=== PATIENT | male | born 1940 | race Caucasian/White ===

== ENCOUNTER → 2016-07-27 | Outpatient (CLI) | payer MEDICARE, OTHER | LOC: SP 10:43 | PROVIDERS: ATTEND Specialist | DX: I65.29 Occlusion and stenosis of unspecified carotid artery (principal) | CPT/HCPCS: 93880 ==

== ENCOUNTER 2019-05-25 17:28 | Emergency (ER) | payer MEDICARE, OTHER ==
--- NOTE | 2019-05-25 18:15 | ER Document Report ---
ED Medical Screen (RME) - General Stated Complaint: CHEST PAIN Time Seen by Provider: 05/25/19 18:05 Primary Care Provider: RAGHAVENDRA PALMA MD [Primary Care Provider] - Follow up as needed TRAVEL OUTSIDE OF THE [place] IN LAST 30 DAYS: No - HPI Notes: 05/25/19 18:12 Patient is an 79-year-old male with a history of coronary artery disease with 3 previous stents, hypertension, type 2 diabetes who presents complaining of a headache for 2 days with a dropping pulsation sound in his ears as well as intermittent chest pain and shortness of breath for the past couple days as well. No fever or recent illness. This is not the worst headache of his life and did not start as a thunderclap. He is able to eat and drink without difficulty. He is urinating normally. He was seen at [facility] yesterday and was diagnosed with vertigo. I did review briefly with Dr. Stoddard and we will get a CT head as well as cardiac work up. I have treated and performed a rapid initial assessment of this patient. A comprehensive ED assessment and evaluation of the patient, analysis of test results and completion of medical decision making process will be conducted by additional ED providers. PHYSICAL EXAMINATION: GENERAL: Well-appearing, well-nourished and in no acute distress. A&Ox4. Answers questions appropriately. Neuro: Cranial nerves grossly intact. GCS 15. Heart: RRR Lungs: CTAB - Related Data Allergies/Adverse Reactions: atorvastatin calcium [From Lipitor] Adverse Reaction (Severe, Verified 05/25/19 18:04) Rhabdomyolosis Past Medical History - Past Medical History Cardiac Medical History: Reports: Hx Coronary Artery Disease, Hx Heart Attack, Hx Hypercholesterolemia, Hx Hypertension Denies: Hx Atrial Fibrillation, Hx Congestive Heart Failure, Hx Peripheral Vascular Disease, Hx Heart Murmur Pulmonary Medical History: Denies: Hx Tuberculosis Endocrine Medical History: Reports: Hx Diabetes Mellitus Type 2. Denies: Hx Graves' Disease, Hx Hyperthyroidism, Hx Hypothyroidism GI Medical History: Reports: Hx Gastroesophageal Reflux Disease, Hx Hiatal Hernia, Hx Ulcer. Denies: Hx Crohn's Disease, Hx Irritable Bowel, Hx Liver Failure, Hx Pancreatitis Musculoskeltal Medical History: Reports Hx Arthritis - knee & shoulder, Denies Hx Fibromyalgia, Denies Hx Muscular Dystrophy, Denies Hx Systemic Lupus Erythematosus Psychiatric Medical History: Reports: Hx Depression Denies: Hx Bipolar Disorder, Hx Post Traumatic Stress Disorder, Hx Schizophrenia Traumatic Medical History: Denies: Hx Fractures Past Surgical History: Reports: Hx Appendectomy, Hx Bowel Surgery, Hx Cardiac Surgery - stents x3, Hx Colostomy - diverticulitis some bowel removed, Hx Tonsillectomy. Denies: Hx Cholecystectomy, Hx Coronary Artery Bypass Graft, Hx Gastric Bypass Surgery, Hx Herniorrhaphy, Hx Pacemaker - Immunizations Hx Diphtheria, Pertussis, Tetanus Vaccination: Yes - 5y Physical Exam - Vital signs Vitals: Temp Pulse Resp BP Pulse Ox 98 F 70 18 159/78 H 99 05/25/19 17:38 05/25/19 17:38 05/25/19 17:38 05/25/19 17:38 05/25/19 17:38 Course - Vital Signs Vital signs: Temp Pulse Resp BP Pulse Ox 98 F 70 18 159/78 H 99 05/25/19 17:38 05/25/19 17:38 05/25/19 17:38 05/25/19 17:38 05/25/19 17:38 Doctor's Discharge - Discharge Referrals: RAGHAVENDRA PALMA MD [Primary Care Provider] - Follow up as needed
--- NOTE | 2019-05-25 19:20 | RADIOLOGY REPORT (SQ) ---
EXAM DESCRIPTION: CHEST 2 VIEWS COMPLETED DATE/TIME: 05/25/2019 7:05 pm REASON FOR STUDY: CP COMPARISON: Chest radiographs 04/08/13. EXAM PARAMETERS: NUMBER OF VIEWS: two views TECHNIQUE: Digital Frontal and Lateral radiographic views of the chest acquired. RADIATION DOSE: NA LIMITATIONS: none FINDINGS: LUNGS AND PLEURA: No opacities, masses or pneumothorax. No pleural effusion. MEDIASTINUM AND HILAR STRUCTURES: Unchanged contours. HEART AND VASCULAR STRUCTURES: Heart normal size. No evidence for failure. BONES: No acute findings. HARDWARE: None in the chest. OTHER: No other significant finding. IMPRESSION: NO ACUTE RADIOGRAPHIC FINDING IN THE CHEST. TECHNICAL DOCUMENTATION: JOB ID: [id number] [employer]- All Rights Reserved Reading location - IP/workstation name: [email or web address]
--- NOTE | 2019-05-25 19:21 | RADIOLOGY REPORT (SQ) ---
EXAM DESCRIPTION: CT HEAD WITHOUT COMPLETED DATE/TIME: 05/25/2019 7:05 pm REASON FOR STUDY: Headache COMPARISON: None. TECHNIQUE: Axial images acquired through the brain without intravenous contrast. Images reviewed wi th bone, brain and subdural windows. Additional sagittal and coronal reconstructions were generated. Images stored on PACS. All CT scanners at this facility use dose modulation, iterative reconstruction, and/or weight based d osing when appropriate to reduce radiation dose to as low as reasonably achievable (ALARA). [facility]: Dose Right [facility]: CareDose [facility]: Dose Right [facility]: Teradose 4D [facility]: [employer] RADIATION DOSE: CT Rad equipment meets quality standard of care and radiation dose reduction techniq ues were employed. CTDIvol: 53.2 mGy. DLP: 964 mGy-cm. mGy. LIMITATIONS: None. FINDINGS: VENTRICLES: Normal size and contour. CEREBRUM: No masses. No hemorrhage. No midline shift. No evidence for acute infarction. Few scatte red areas of low density in the white matter most likely chronic small vessel ischemic changes. CEREBELLUM: No masses. No hemorrhage. No alteration of density. No evidence for acute infarction. EXTRAAXIAL SPACES: No fluid collections. No masses. ORBITS AND GLOBE: No intra- or extraconal masses. Normal contour of globe without masses. CALVARIUM: No fracture. PARANASAL SINUSES: No fluid or mucosal thickening. SOFT TISSUES: No mass or hematoma. OTHER: No other significant finding. IMPRESSION: No acute intracranial pathology. No noncontrast CT findings to explain headache. Small vessel white matter disease. EVIDENCE OF ACUTE STROKE: NO. COMMENT: Quality ID # 436: Final reports with documentation of one or more dose reduction techniques (e.g., Automated exposure control, adjustment of the mA and/or kV according to patient size, use of iterative reconstruction technique) TECHNICAL DOCUMENTATION: JOB ID: [id number] [employer]- All Rights Reserved Reading location - IP/workstation name: [email or web address]
[2019-05-25 19:26] LABS: APPEARANCE,URINE CLEAR; BILIRUBIN,URINE NEGATIVE (NEGATIVE); COLOR,URINE STRAW; GLUCOSE, URINE NEGATIVE (NEGATIVE); KETONES,URINE NEGATIVE (NEGATIVE); PROTEIN,URINE 30 mg/dL (NEGATIVE); URINE SPECIFIC GRAVITY 1.004; UROBILINOGEN,URINE NEGATIVE mg/dL (<2.0)
[2019-05-25 19:44] LABS: ABSOLUTE EOSINOPHILS # (AUTO) 0.2 10^3/uL (0.0-0.6); ABSOLUTE LYMPHOCYTES (AUTO) 1.9 10^3/uL (0.5-4.7); ABSOLUTE MONOCYTES (AUTO) 0.5 10^3/uL (0.1-1.4); ABSOLUTE NEUT (AUTO) 1.8 10^3/uL (1.7-8.2); BASOPHILS % (AUTO) 0.9 % (0-2); HEMATOCRIT 38.5 % (37.9-51.0); HEMOGLOBIN 13.2 g/dL (13.5-17.0); LYMPHOCYTES % (AUTO) 42.3 % (13-45); MEAN CORPUSCULAR HEMOGLOBIN 32.4 pg (27.0-33.4); MEAN CORPUSCULAR HGB CONC 34.3 g/dL (32.0-36.0); MEAN CORPUSCULAR VOLUME 95 fl (80-97); PLATELET COUNT 307 10^3/uL (150-450); RED BLOOD COUNT 4.07 10^6/uL (4.35-5.55); RED CELL DISTRIBUTION WIDTH 14.1 % (11.5-14.0); SEGMENTED NEUTROPHILS % (AUTO) 39.8 % (42-78); TOTAL CELLS COUNTED % (AUTO) 100 %; WHITE BLOOD COUNT 4.5 10^3/uL (4.0-10.5)
[2019-05-25 20:08] LABS: ALBUMIN 4.2 g/dL (3.5-5.0); ALKALINE PHOSPHATASE 79 U/L (38-126); ANION GAP 9 (5-19); ASPARTATE AMINO TRANSFERASE 35 U/L (17-59); BILIRUBIN,DIRECT 0.3 mg/dL (0.0-0.4); BILIRUBIN,TOTAL 0.6 mg/dL (0.2-1.3); BLOOD UREA NITROGEN 14 mg/dL (7-20); CALCIUM 10.8 mg/dL (8.4-10.2); CARBON DIOXIDE 25 mmol/L (22-30); CHLORIDE 105 mmol/L (98-107); GLUCOSE 102 mg/dL (75-110); POTASSIUM 4.6 mmol/L (3.6-5.0); TOTAL PROTEIN 7.7 g/dL (6.3-8.2)
[2019-05-25] MEDS ORDERED: NORMAL SALINE 500 ML IV ONE (20:43)
--- NOTE | 2019-05-25 20:49 | ER Document Report ---
ED Headache - General Chief Complaint: Headache >24 hrs old Stated Complaint: CHEST PAIN Time Seen by Provider: 05/25/19 18:05 Primary Care Provider: RAGHAVENDRA PALMA MD [ACTIVE STAFF] - Follow up as needed Mode of Arrival: Medic Information source: Patient TRAVEL OUTSIDE OF THE [place] IN LAST 30 DAYS: No - HPI Patient complains to provider of: Headache Patient reports: Other - Patient reports a chronic throbbing headache that has been present for months. And was seen yesterday in the [facility] had a CT scan of his head done that was reported to him as normal. He was placed on meclizine for lightheaded dizziness. Today patient says the headache is still present so he came to the ED for further evaluation. Patient denies any chest pain issues. Patient does have coronary artery disease and stents in his heart but has no complaints of chest pain discomfort at this time. Onset: Other - Chronic Onset was: Gradual, Other - Bitemporal and throbbing in nature also can hear this noise in both ears. States headache pain comes and goes 1 is in his greatest intensity about 6 out of 10 otherwise less than 3 out of 10. Severity: Moderate Pain Level: 2 Context: Other - No diagnosis of this headache to date Preceding symptoms: Other - The only symptoms is a throbbing nature to the headache on both temporal areas. Associated symptoms: Lightheaded, Motion sickness Similar symptoms previously: Yes Recently seen / treated by doctor: Yes - Was evaluated in the [facility] ED yesterday including a CT scan is - Related Data Allergies/Adverse Reactions: atorvastatin calcium [From Lipitor] Adverse Reaction (Severe, Verified 05/25/19 18:04) Rhabdomyolosis Home Medications: gabapentin 300. asa 81. norvasc 5. lisinopril 40. cinnamon 500. zantac 150. celexa 20. ferrous sulfate 325. crestor 20. aricept 10. seroquen 25. isosorbide 30. vitamin d3-b12-c 500 Past Medical History - Social History Smoking Status: Current Every Day Smoker Chew tobacco use (# tins/day): No Frequency of alcohol use: None Drug Abuse: None Lives with: Family Family History: Reviewed & Not Pertinent Patient has suicidal ideation: No Patient has homicidal ideation: No - Past Medical History Cardiac Medical History: Reports: Hx Coronary Artery Disease, Hx Heart Attack, Hx Hypercholesterolemia, Hx Hypertension Denies: Hx Atrial Fibrillation, Hx Congestive Heart Failure, Hx Peripheral Vascular Disease, Hx Heart Murmur Pulmonary Medical History: Denies: Hx Tuberculosis Endocrine Medical History: Reports: Hx Diabetes Mellitus Type 2. Denies: Hx Graves' Disease, Hx Hyperthyroidism, Hx Hypothyroidism GI Medical History: Reports: Hx Gastroesophageal Reflux Disease, Hx Hiatal Hernia, Hx Ulcer. Denies: Hx Crohn's Disease, Hx Irritable Bowel, Hx Liver Failure, Hx Pancreatitis Musculoskeletal Medical History: Reports Hx Arthritis - knee & shoulder, Denies Hx Fibromyalgia, Denies Hx Muscular Dystrophy, Denies Hx Systemic Lupus Erythematosus Psychiatric Medical History: Reports: Hx Depression Denies: Hx Bipolar Disorder, Hx Post Traumatic Stress Disorder, Hx Schizophrenia Traumatic Medical History: Denies: Hx Fractures Past Surgical History: Reports: Hx Appendectomy, Hx Bowel Surgery, Hx Cardiac Surgery - stents x3, Hx Colostomy - diverticulitis some bowel removed, Hx Tonsillectomy. Denies: Hx Cholecystectomy, Hx Coronary Artery Bypass Graft, Hx Gastric Bypass Surgery, Hx Herniorrhaphy, Hx Pacemaker - Immunizations Hx Diphtheria, Pertussis, Tetanus Vaccination: Yes - 5y Hx Pneumococcal Vaccination: 05/29/10 Review of Systems - Review of Systems Neurological/Psychological: See HPI Physical Exam - Vital signs Vitals: Temp Pulse Resp BP Pulse Ox 98 F 70 18 159/78 H 99 05/25/19 17:38 05/25/19 17:38 05/25/19 17:38 05/25/19 17:38 05/25/19 17:38 Interpretation: Normal - General General appearance: Appears well, Alert - HEENT Head: Normocephalic, Atraumatic Eyes: Normal Extraocular movements intact: Yes Pupils: PERRL Visual law normal: Yes Tympanic membrane: Bulging, Serous effusion Hearing loss: Left, Right Sinus: Normal Nasal: Normal Mouth/Lips: Normal Mucous membranes: Moist Pharynx: Normal - Respiratory Respiratory status: No respiratory distress Chest status: Nontender Breath sounds: Normal Chest palpation: Normal - Cardiovascular Rhythm: Regular Heart sounds: Normal auscultation Murmur: No - Abdominal Inspection: Normal Distension: No distension Bowel sounds: Normal Tenderness: Nontender Organomegaly: No organomegaly - Back Back: Normal, Nontender - Extremities General upper extremity: Normal inspection, Nontender, Normal color, Normal ROM, Normal temperature General lower extremity: Normal inspection, Nontender, Normal color, Normal ROM, Normal temperature, Normal weight bearing. No: Lina's sign - Neurological Neuro grossly intact: Yes Cognition: Normal Orientation: AAOx4 Ismael Coma Scale Eye Opening: Spontaneous [place] Coma Scale Verbal: Oriented [place] Coma Scale Motor: Obeys Commands [place] Coma Scale Total: 15 Speech: Normal Motor strength normal: LUE, RUE, LLE, RLE Sensory: Normal - Psychological Associated symptoms: Normal affect, Normal mood - Skin Skin Temperature: Warm Skin Moisture: Dry Skin Color: Normal Course - Re-evaluation Re-evalutation: 05/25/19 23:56 Also I recommended patient take Tylenol if needed for any headache pain. - Vital Signs Vital signs: Temp Pulse Resp BP Pulse Ox 98 F 70 18 154/89 H 100 05/25/19 17:38 05/25/19 17:38 05/25/19 17:38 05/25/19 22:02 05/25/19 22:02 - Laboratory Result Diagrams: 05/25/19 19:35 05/25/19 19:35 Laboratory results interpreted by me: 05/25/19 05/25/19 05/25/19 17:50 19:35 19:35 RBC 4.07 L Hgb 13.2 L RDW 14.1 H Seg Neutrophils % 39.8 L Creatinine 1.81 H Est GFR ( Amer) 44 L Est GFR (MDRD) Non-Af 36 L Calcium 10.8 H Urine Protein 30 H Urine Ascorbic Acid 20 H - Diagnostic Test Radiology reviewed: Image reviewed, Reports reviewed Discharge - Discharge Clinical Impression: Headache Condition: Stable Disposition: HOME, SELF-CARE Additional Instructions: Headache The physician does not feel that the headache you are experiencing has a serious underlying cause. Most headaches are due to emotional stress, with resultant muscle tension (tension headache). Occasionally, headaches are secondary to changes in the blood vessels of the scalp (vascular headache and migraine headache). Sometimes, a headache is the first symptom of another developing illness, such as a viral infection. You have no evidence of stroke, bleeding, meningitis, or other serious cause of your headache. The treatment of headaches varies with the severity and cause of the pain. Not all headaches need pain shots. In fact, there is evidence that using narcotics for headaches may make them worse in the long run. The physician will determine the therapy that's in your best interest. If you develop a fever, if the headache is different from any you've previously experienced, or if the headache progressively worsens, then call your physician at once or go to the emergency room. No new prescriptions. Patient is told to begin Tylenol if needed for headache. Patient is to continue all his other you usual medicines. Referrals: RAGHAVENDRA PALMA MD [ACTIVE STAFF] - Follow up as needed
--- NOTE | 2019-05-25 22:54 | EKG REPORT ---
SEVERITY:- NORMAL ECG - SINUS RHYTHM : Confirmed by: Ruth Melvin MD 25-May-2019 22:53:57
--- NOTE | 2019-05-25 23:25 | RADIOLOGY REPORT (SQ) ---
EXAM DESCRIPTION: CT NECK ANGIOGRAPHY WITHOUT THEN WITH IV CONTRAST, CT HEAD ANGIOGRAPHY WITHOUT THEN WITH IV CONTRAST COMPLETED DATE/TME: 05/25/2019 21:51 (accession [id number]), 05/25/2019 21:49 (accession [id number]) CLINICAL HISTORY: 79 years, Male, headache /bitemporal throbbing pain COMPARISON: None. TECHNIQUE: 442 Images stored on PACS. All CT scanners at this facility use dose modulation, iterative reconstruction, and/or weight based dosing when appropriate to reduce radiation dose to as low as reasonably achievable (ALARA). Axial CTA images with coronal and sagittal MIPS [facility]: Dose Right [facility]: CareDose [facility]: Dose Right [facility]: Teradose 4D [facility]: [employer] LIMITATIONS: None. FINDINGS: CTA neck: Origins of the great vessels are patent from the arch of the aorta. Moderate atheromatous change of the arch of the aorta. The origins and remaining cervical portions of the vertebral arteries are widely patent and codominant. Mild to moderate atheromatous calcification of the common carotid arteries bilaterally. However, the origins and remaining cervical portions of the internal carotid arteries are widely patent bilaterally. Minimal atheromatous calcification at the carotid bifurcations. CTA brain: The vertebral basilar system is unremarkable. Negative for basilar tip aneurysm. The petrous portions of the internal carotid arteries are widely patent. Mild atheromatous calcifications of the cavernous and supraclinoid ICAs bilaterally. No CTA evidence for severe stenosis, vascular encasement, or displacement IMPRESSION: No CTA evidence for measurable stenosis in the head or neck. TECHNICAL DOCUMENTATION: Quality ID # 436: Final reports with documentation of one or more dose reduction techniques (e.g., Automated exposure control, adjustment of the mA and/or kV according to patient size, use of iterative reconstruction technique) copyright 2010 [employer]- All Rights Reserved
--- NOTE | 2019-05-25 23:25 | RADIOLOGY REPORT (SQ) ---
EXAM DESCRIPTION: CT NECK ANGIOGRAPHY WITHOUT THEN WITH IV CONTRAST, CT HEAD ANGIOGRAPHY WITHOUT THEN WITH IV CONTRAST COMPLETED DATE/TME: 05/25/2019 21:51 (accession [id number]), 05/25/2019 21:49 (accession [id number]) CLINICAL HISTORY: 79 years, Male, headache /bitemporal throbbing pain COMPARISON: None. TECHNIQUE: 442 Images stored on PACS. All CT scanners at this facility use dose modulation, iterative reconstruction, and/or weight based dosing when appropriate to reduce radiation dose to as low as reasonably achievable (ALARA). Axial CTA images with coronal and sagittal MIPS [facility]: Dose Right [facility]: CareDose [facility]: Dose Right [facility]: Teradose 4D [facility]: [employer] LIMITATIONS: None. FINDINGS: CTA neck: Origins of the great vessels are patent from the arch of the aorta. Moderate atheromatous change of the arch of the aorta. The origins and remaining cervical portions of the vertebral arteries are widely patent and codominant. Mild to moderate atheromatous calcification of the common carotid arteries bilaterally. However, the origins and remaining cervical portions of the internal carotid arteries are widely patent bilaterally. Minimal atheromatous calcification at the carotid bifurcations. CTA brain: The vertebral basilar system is unremarkable. Negative for basilar tip aneurysm. The petrous portions of the internal carotid arteries are widely patent. Mild atheromatous calcifications of the cavernous and supraclinoid ICAs bilaterally. No CTA evidence for severe stenosis, vascular encasement, or displacement IMPRESSION: No CTA evidence for measurable stenosis in the head or neck. TECHNICAL DOCUMENTATION: Quality ID # 436: Final reports with documentation of one or more dose reduction techniques (e.g., Automated exposure control, adjustment of the mA and/or kV according to patient size, use of iterative reconstruction technique) copyright 2010 [employer]- All Rights Reserved
[2019-05-26 00:22] VITALS: BP 176/78
== END 2019-05-26 00:21 | disposition home or self-care (01) ==
LOC: ER 17:28
DX: R51 Headache (principal); R42 Dizziness and giddiness; Z79.899 Other long term (current) drug therapy; I25.10 Atherosclerotic heart disease of native coronary artery without angina pectoris; F17.200 Nicotine dependence, unspecified, uncomplicated; E11.9 Type 2 diabetes mellitus without complications
CPT/HCPCS: 93005; 99285; 96360; 36415; 85025; 85652; 80053; 81001; 84484; 71046; 70450; 70496; 70498; 93010; J7040